=== PATIENT | female | born 1995 | race African-American/Black ===

== ENCOUNTER 2016-12-17 10:35 | Inpatient (IN) | payer OTHER ==
[~2016-12-17] VITALS: Ht 160 cm; Wt 67.0 kg
[2016-12-17] MEDS ORDERED: PRENTAB9 PO (10:51)
[2016-12-17] MEDS ORDERED: ZANTTAB PO (10:51)
[2016-12-17 10:54] VITALS: BP 116/63
[2016-12-17 13:16] LABS: MEAN CORPUSCULAR HEMOGLOBIN 32.2 pg (27.0-33.0); MEAN CORPUSCULAR HGB CONC 33.6 g/dl (32.0-36.5); RED CELL DISTRIBUTION WIDTH 13.2 % (11.5-14.5); WHITE BLOOD COUNT 15.4 K/mm3 (4.0-10.0)
[2016-12-17] MEDS ORDERED: LR 1,000 ML IV SCH ×2 (13:40→17:00)
--- NOTE | 2016-12-17 13:44 | REP ---
OB ULTRASOUND: Real-time sonographic evaluation of the gravid uterus is performed. There is a single living intrauterine gestation with an estimated gestational age 35 weeks 4 days, EDC 01/17/2017. Today's, measurements indicate suboptimal growth with estimated age of 33 weeks 1 day based on an average of ultrasound measurements. Biometry and Growth: BPD 86 mm = 34 weeks 4 days, 35th percentile HC 314 mm = 35 weeks 2 days, 45th percentile AC 271 mm = 31 weeks 1 day, less than 5th percentile FL 60 mm = 31 weeks 1 day, less than 5th percentile HC/AC ratio 1.16 is above the normal range of 0.93 to 1.12 Estimated weight 1847 grams, less than 3rd percentile. heart rate: 128/ beats per minute position: Breech. Placenta: Anterior and grade 3 with no previa or abruption. Amniotic fluid: Appears markedly low. EFE is 3.7 which is below normal range of 7.8 to 24.9. Biophysical profile score is 4 out of 8 with no points for breathing or tone. S/D ratio in the mind umbilical artery is 3.57, which is above the normal range of 2.0 to 3.0. RI 0.72 is within normal range of 0.59 to 0.75. Four chamber heart, stomach, kidneys, bladder and spine are visualized and are grossly unremarkable. Doppler was also performed in the middle cerebral artery. Peak systolic velocity is 58.2 cm/s, S/D ratio 2.48, RI 0.60. S/D ratio in the middle cerebral artery of 2.48 is abnormal since it should be greater than the S/D ratio of the umbilical artery 3.57. ? Signed by Sudeep Chow MD 12/17/2016 04:39 P
[2016-12-17] MEDS ORDERED: LACTATED RINGER'S 1000 ML IV ONE (13:45)
[2016-12-17] MEDS ORDERED: ACETAMINOPHEN 650 MG SUPP PR ONE (13:45)
[2016-12-17] MEDS ORDERED: BUPIVACAINE HCL 0.25% 10 ML VIAL SC ONE (13:45)
[2016-12-17] MEDS ORDERED: BICITRA 30ML SOLN UDC PO ONE (13:45)
[2016-12-17 14:41] VITALS: BP 93/54
[2016-12-17] MEDS ORDERED: MORPHINE PRES-FREE INJ 10 MG/10 ML VIAL (J2274) As Ordered ONE (14:42)
[2016-12-17] MEDS ORDERED: OXYTOCIN INJ 10 UNITS/ML VIAL (J2590) As Ordered ONE ×2 (14:46→15:52)
[2016-12-17] MEDS ORDERED: NALBUPHINE HCL 10 MG/ML AMP (J2300) IV PRN (14:59)
[2016-12-17] MEDS ORDERED: NALOXONE INJ 0.4 MG/1 ML VIAL (J2310) IV PRN ×2 (14:59)
[2016-12-17] MEDS ORDERED: ONDANSETRON 4MG/2ML VIAL (J2405) IV PRN (14:59)
--- NOTE | 2016-12-17 15:30 | HPE ---
DATE OF ADMISSION: 12/17/2016 This is a 21-year-old 1, para 0, seen in the office today because of a nonreassuring heart and was noted small for gestational age on ultrasound. She apparently had normal growth up until about 25 or 26 weeks. Her last menstrual period (LMP) was 04/12/2016, estimated date of confinement (EDC) 01/17/2017. She is presently at 35 and 5 weeks of gestation and is diagnosed as small for gestational age (SGA) with a breech presentation, nonreassuring heart. LABORATORY DATA: Laboratories show A+, HIV negative, RPR negative, rubella immune. Varicella immune. Pap normal. Urine negative. Gonorrhea and chlamydia are negative. One-hour glucose was 135. Her three-hour GTT fasting 82, one-hour 71, two-hour 106, and three-hour 67. Blood pressure is 93/54, respirations are 18, pulse 64 and temperature is 98.2. Urine is 1005, pH 7 and negative, negative, negative. We did an NST and she had the occasional late decelerations which were spontaneous and then she had episodes of minimal variability followed by some variability. We did a BPP which showed intrauterine breech presentation with suboptimal growth, estimated at less than the third percentile for weight of 1847 grams. heart is 128, anterior placenta, grade 3, EFE was 3.7, giving a BPP of 4/8, the ST ratio was 3.57, the RI index 0.72, the middle cerebral artery was 2.48 which was abnormal since it should be greater than the ST ratio of the umbilical artery at 3.7. We discussed extensively with the patient about delivery of the baby and the fact that there significant growth restriction and there was decreased flow with no fluid and no tone and no breathing. The most appropriate method of delivery would be section with neonatology present. We discussed the risks and benefits of section including hemorrhage, infection, perforation, , reoperation, remote possibility of blood transfusion, remote possibility of hysterectomy, remote possibility of laceration, remote possibility of baby ending up in intensive care unit (NICU). However, with a small for gestational age and requiring nutritional support, there is high likelihood the baby will be there for nutritional support. We consulted neonatology. The rest of her examination is unremarkable. She is normocephalic, atraumatic. Neck: Full range of motion. Pupils are equal and reactive to light. Distal pulses are symmetric. No evidence of deep vein thrombosis (DVT), pulmonary embolism (PE) or superficial phlebitis. No wheezes or rhonchi. No costovertebral angle (CVA) tenderness. Symphysis fundus height is not appropriate, it is breech presentation, a nonreassuring heart. She has no rashes or lesions. No pruritus. No arthralgia or myalgia. No complaints of cough, wheezes, shortness of breath or dyspnea on exertion. No chest pain. She is not bleeding. Neurologically complete. No incontinency, urgency or frequency. No nausea, vomiting, diarrhea or constipation. No diabetic issues. No [employer] issues. PAST MEDICAL AND SURGICAL HISTORY: Unremarkable. She does smoke and she smoked a package of cigarettes a day. She is a 5.5 year pack smoker. She does not abuse alcohol or any other drugs. She is . There is no domestic violence. In summary, we have a 35 and 5 weeks of gestation with a small for gestational age fetus with a biophysical profile (BPP) of 4/8 and non-stress test (NST) of 0/2, giving a total of 4/10. The optimal management for this patient is a primary section with neonatology in attendance. The patient accepts the risks and benefits, signed and witnessed the consent form. We spent one hour talking with this patient [id number].
[2016-12-17] MEDS ORDERED: ONDANSETRON 4MG/2ML VIAL (J2405) As Ordered ONE (15:31)
[2016-12-17] MEDS ORDERED: fentaNYL 100 MCG/2 ML INJECTION (J3010) As Ordered ONE ×2 (15:32→16:43)
[2016-12-17] MEDS ORDERED: ePHEDrine SULFATE 25 MG/5 ML(5MG/ML) SYRINGE As Ordered ONE (15:46)
[2016-12-17] MEDS ORDERED: PHENYLephrine HCL 500 MCG/5 ML (100MCG/ML) SYRINGE (J2370) As Ordered ONE (15:46)
[2016-12-17 15:47] LABS: CORD GAS ABE V -5.6; CORD GAS HCO3 V 20.6 MEQ/L; CORD GAS O2 SAT V 79.8 %; CORD GAS PCO2 V 42.8 mmHg; CORD GAS PH V 7.301 UNITS; CORD GAS PO2 V 37.9 mmHg; CORD GAS SBC V 19.5 MEQ/L; CORD GAS TCO2 V 21.9 MEQ/L
[2016-12-17 15:49] LABS: CORD GAS ABE A -7.2; CORD GAS HCO3 A 20.1 MEQ/L; CORD GAS O2 SAT A 92.9 %; CORD GAS PCO2 A 46.9 mmHg; CORD GAS PH A 7.25 UNITS; CORD GAS PO2 A 55.1 mmHg; CORD GAS SBC A 18.6 MEQ/L; CORD GAS TCO2 A 21.5 MEQ/L
[2016-12-17] MEDS ORDERED: MEPERIDINE 50 MG/ML 1ML VIAL (J2175) As Ordered ONE (15:55)
[2016-12-17] MEDS ORDERED: PROPOFOL 200 MG/20 ML VIAL As Ordered ONE (15:57)
[2016-12-17] MEDS ORDERED: diphenhydrAMINE INJ 50MG/ML VIAL (J1200) As Ordered ONE (16:07)
[2016-12-17] MEDS ORDERED: OXYTOCIN DRIP 30 UNITS in APPROPRIATE DILUENT 1 EA IV SCH (16:27)
[2016-12-17] MEDS ORDERED: RHOGAM 300 MCG (1500 IU) INJ (J2790) IM SCH (16:30)
[2016-12-17] MEDS ORDERED: OXYTOCIN INJ 10 UNITS/ML VIAL (J2590) IV ONE (16:30)
[2016-12-17] MEDS ORDERED: METHYLERGONOVINE MALEATE 0.2 MG TAB PO PRN (16:30)
[2016-12-17] MEDS ORDERED: DOCUSATE SODIUM 100 MG CAP PO PRN (16:30)
[2016-12-17] MEDS ORDERED: PERCOCET 5MG/325MG TAB PO PRN (16:30)
[2016-12-17] MEDS ORDERED: MEASLES,MUMPS,RUBELLA VACCINE INJ (MMR-II) (90707) SC SCH (16:30)
[2016-12-17] MEDS ORDERED: MOM 30ML SUSPENSION UDC PO PRN (16:30)
[2016-12-17] MEDS ORDERED: fentaNYL 100 MCG/2 ML INJECTION (J3010) IV PRN (17:00)
[2016-12-17 18:00] VITALS: BP 113/61
[2016-12-17 19:07] VITALS: BP 116/55
[2016-12-17 20:06] VITALS: BP 107/56
[2016-12-17 22:27] VITALS: BP 93/51
[2016-12-17] MEDS: METOCLOPRAMIDE INJ 10MG/2ML VIAL (J2765) IV PRN (23:26)
[2016-12-18 02:28] VITALS: BP 92/48
[2016-12-18] MEDS: PERCOCET 5MG/325MG TAB PO PRN ×5 (06:15→23:06)
[2016-12-18 06:54] VITALS: BP 102/60
[2016-12-18 06:57] LABS: MEAN CORPUSCULAR HEMOGLOBIN 32.4 pg (27.0-33.0); MEAN CORPUSCULAR HGB CONC 33.6 g/dl (32.0-36.5); MEAN CORPUSCULAR VOLUME 96.4 fl (80.0-96.0); WHITE BLOOD COUNT 18.4 K/mm3 (4.0-10.0)
[2016-12-18] MEDS: PRENATAL VITAMIN TAB PO SCH (08:14)
[2016-12-18 10:00] VITALS: BP 92/48
[2016-12-18] MEDS: METOCLOPRAMIDE INJ 10MG/2ML VIAL (J2765) IV PRN (14:41)
[2016-12-18 15:00] VITALS: BP 113/60
--- NOTE | 2016-12-18 15:06 | RO ---
DATE OF PROCEDURE: 12/17/2016 PREOPERATIVE DIAGNOSIS: Non-reassuring heart, small for gestational age, elevated intracerebral artery pressure, breech presentation, oligohydramnios. POSTOPERATIVE DIAGNOSIS: Non-reassuring heart, small for gestational age, elevated intracerebral artery pressure, breech presentation, oligohydramnios. OPERATION PROPOSED: Primary section. OPERATION PERFORMED: Primary section. SURGEON: Dr. Gus Goff DRIER TAKE OFF TENDER: Dr. Avani Cartwright ANESTHESIA: Spinal plus local anesthetic for intraperitoneal procedures. ESTIMATED BLOOD LOSS: 400 mL. Under adequate anesthesia, prepped and draped in supine position, Cuevas catheter in the bladder draining clear urine, acetaminophen suppository 1300 mg per rectum, sequentials on board, antibiotics preoperative. Timeout performed. Dr. Guzmán in attendance for resuscitation. Pfannenstiel incision may two fingerbreadths above the symphysis pubis passing through abdominal layers. Securing hemostasis. Opening peritoneal cavity, bladder reflected down anteriorly, huge varicosities were noted. Low transverse incision was made. Moderate amount of bleeding from the incisional site. We delivered a ana breech presentation live male infant weighing 4 pounds 1 ounce, 1836 grams, of 8 and 9 at one and five minutes respectively. There was a cord around the neck once, cord around the arm once, cord around the body into groin times one. Arterial and venous pH were performed. Arterial blood gas 7.25, base excess -7.2, venous pH 7.30, base excess -5.6. The placenta was sent to pathology under separate cover. The uterus contracted well down on Pitocin. Sweeping the uterus, no evidence of membranes or tissue. The lower segment was oversewn in two layers. Reperitonealization was performed. With instrument and pad count correct, both ovaries and tubes appeared to be normal. Counts were correct. The abdomen was closed with running stitch for the peritoneum, same for the fascia, interrupted subcutaneous Dexon to the skin, with Marcaine 0.25% 10 mL, spray and Telfa. The patient was sent to recovery in good condition.
--- NOTE | 2016-12-18 15:08 | IPN ---
DATE: 12/18/2016 Postop day 1. This lady was admitted directly from the clinic because of a non-reassuring heart, small for gestational age, rule out IUGR. She had an ultrasound which showed a biophysical profile 4/8, 3 cm fluid. No motion. No tone. No breathing. Breech presentation with an elevated middle cerebral artery value of 2.84. She had a primary section for a live male 4 pounds, 1 ounce, 1836 grams. scores of 8 and 9 at one and five minutes, respectively. The arterial pH was 7.25, base excess -7.2, venous pH 7.30, base excess -5.6. Her admitting hemoglobin 11.6, hematocrit 34.6 and platelets 272, postop day 1 hemoglobin 10.5, hematocrit 31.1 and platelets 261. We discussed phlebitis, cystitis, mastitis, endometritis and cellulitis, diet, exercise and pain management, perineal breast and wound care. Baby is going to be here for several weeks and we are planning on discharge for the patient with recurring visiting for the baby. Presently, the baby is doing well in the NICU and the parents are pleased with care being given. Her blood pressure today is 102/60, respirations 18, pulse 65, temperature is 97.9. The patient is not planning on using anything for control at the present time, but we will dispensed meds upon discharge. The rest examination is unremarkable. She is normocephalic, atraumatic. Neck full range of motion. Pupils equal and reactive to light. Distal pulses are symmetric. No evidence of DVT, PE or superficial phlebitis. No wheezes or rhonchi. Chest is clear to the bases. Abdomen is soft. Uterus 2 below. Lochia is moderate. Four quadrant bowel sounds. Incision is clean and dry. No rashes, lesions or pruritus. No arthralgia, myalgia. No complaint of cough, wheezes, shortness of breath or dyspnea on exertion. No chest pain. She is not bleeding. Neuro complete. Cuevas catheter is out. She has voided, passing gas. Active bowel sounds. No nausea, vomiting, diarrhea or constipation. She does smoke and despite the fact that she has reduced her intake, she still continues to smoke. We offered her smoking cessation aids and the patient will take it under advisement. She does not drink or abuse drugs. She is and has no domestic violence. In summary we have a primary section for oligohydramnios, breech presentation, IUGR. Both the patient and baby are doing well.
[2016-12-18 18:00] VITALS: BP 113/64
[2016-12-18 22:15] VITALS: BP 106/71
[2016-12-19] MEDS: PERCOCET 5MG/325MG TAB PO PRN ×2 (05:02→10:05)
[2016-12-19 06:16] VITALS: BP 108/72
[2016-12-19] MEDS: PRENATAL VITAMIN TAB PO SCH (07:23)
--- NOTE | 2016-12-19 10:40 | IPNPDOC ---
Text Note Date of Service The patient was seen on 12/19/16. NOTE Post-Op Day 2 Aria is a 21yo [id number] doing well on post-op day 2 s/p uncomplicated PLTCS indicated for oligohydramnios/IUGR/breech presentation with BPP of 4/8 at 35w5d. She is breast pumping for baby in NICU. Lochia normal, spontaneously voiding and ambulating without difficulty. Tolerating regular diet. Denies f/c/n /v/SOB/CP/MACKENZIE/abdominal pain. Vitals wnl, afebrile Exam: General: WDWN, NAD, resting comfortably Cardiac: S1S2 present, no murmur Lungs: CTAB without wheeze/crackles Abdomen: soft, NTTP, fundus firm u-2cm, pfannensteil with no surrounding erythema, no drainage Extremities: no tenderness of calves bilaterally, SCDs on and functioning Labs: Admission H/H 11.6/34.6, post-op H/H 10.5/31.1 Assessment: Aria is a 21yo [id number] doing well on post-op day 2 s/p uncomplicated PLTCS indicated for oligohydramnios/IUGR/breech presentation with BPP of 4/8 at 35w5d. Vitals wnl, benign exam. No e/o infection, hemodynamically stable. Plan: -discharge to home today with follow-up in clinic in 2 weeks -motrin/percocet prn pain -undecided for contraception Dr. Henri Appiah MD [place] BRANDY VS,Trena, I+O VS, Trena, I+O Vital Signs Date Time Temp Pulse Resp B/P (MAP) Pulse Ox O2 Delivery O2 Flow Rate FiO2 12/19/16 10:05 16 Room Air 12/19/16 06:16 97.7 71 108/72 (84) 12/18/16 18:00 99 I&O- Last 24 Hours up to 6 AM 12/19/16 06:00 Intake Total 720 ml Output Total 400 ml Balance 320 ml HENRI APPIAH MD Dec 19, 2016 10:40
--- NOTE | 2016-12-19 10:48 | DS.PDOC ---
Discharge Summary General Date of Admission Dec 17, 2016 at 12:44 Date of Discharge Dec 19, 2016 Attending Physician: HENRI CHINCHILLA MD Discharge Summary PROCEDURES PERFORMED DURING STAY: Primary low transverse section ADMITTING DIAGNOSES: 1. Non-reassuring heart rate tracing on routine testing 2. Oligohydramnios, intrauterine growth restriction, breech presentation with biophysical profile of 4/8 at 35 weeks 5 days DISCHARGE DIAGNOSES: 1. Non-reassuring heart rate tracing on routine testing 2. Oligohydramnios, intrauterine growth restriction, breech presentation with biophysical profile of 4/8 at 35 weeks 5 days 3. Delivered via primary low transverse section COMPLICATIONS/CHIEF COMPLAINT: Non Reassuring Heart Tracing In Office. HISTORY OF PRESENT ILLNESS/HOSPITAL COURSE: Aria is a 21yo [id number] doing well on post operative day 2 status post uncomplicated primary low transverse section indicated for oligohydramnios/intra-uterine growth restriction/breech presentation with biophysical profile of 4/8 at 35 weeks 5 days. Vitals normal, benign exam. No evidence of infection, hemodynamically stable. Benign post-operative course, stable for discharge and desirous of discharge. DISCHARGE MEDICATIONS: motrin/percocet/colace/lanolin/dibucaine ALLERGIES: Please see below. PHYSICAL EXAMINATION ON DISCHARGE: Vitals wnl, afebrile Exam: General: WDWN, NAD, resting comfortably Cardiac: S1S2 present, no murmur Lungs: CTAB without wheeze/crackles Abdomen: soft, NTTP, fundus firm u-2cm, pfannensteil with no surrounding erythema, no drainage Extremities: no tenderness of calves bilaterally LABORATORY DATA: Admission H/H 11.6/34.6, post-op H/H 10.5/31.1 ACTIVITY: As tolerated DIET: regular DISCHARGE PLAN: discharge to home today with follow-up in clinic in 2 weeks DISPOSITION: Home DISCHARGE INSTRUCTIONS: Keep incision clean and dry, vaginal rest for 6 weeks, no heavy lifting greater than weight of baby for 6 weeks Return to clinic or ER for fevers/chills, redness or increasing pain or drainage related to incision, increasing abdominal pain, breast redness/ tenderness associated with fevers/chills/muscle pain DISCHARGE CONDITION: Stable TIME SPENT ON DISCHARGE: Greater than 30 minutes. MD Nathan Royal Vital Signs/I&Os Vital Signs Date Time Temp Pulse Resp B/P (MAP) Pulse Ox O2 Delivery O2 Flow Rate FiO2 12/19/16 10:05 16 Room Air 12/19/16 06:16 97.7 71 108/72 (84) 12/18/16 18:00 99 I&O- Last 24 Hours up to 6 AM 12/19/16 06:00 Intake Total 720 ml Output Total 400 ml Balance 320 ml Discharge Medications Scheduled Multivitamins/ ( 27-0.8 mg) 1 Tab Tab, 1 TAB PO DAILY, (Reported ) Scheduled PRN Ranitidine Hcl (Zantac 150 Maximum Streng) 150 Mg Tab, 1 TAB PO PRN PRN for INDIGESTION, (Reported) Allergies Coded Allergies: Naproxen (Verified Allergy, Unknown, ANAPHYLAXIS, 12/17/16) HENRI CHINCHILLA MD Dec 19, 2016 10:48
[2016-12-19] MEDS ORDERED: COLA100C3 PO (11:45)
[2016-12-19] MEDS ORDERED: OXYC1TAB23 PO (11:45)
== END 2016-12-19 13:30 | disposition home or self-care (01) | DRG 765 ==
LOC: M LDO 10:35 → M LDI 12:44 → M OBS 18:05
PROVIDERS: ADMIT Obstetrics & Gynecology; ATTEND Obstetrics & Gynecology
PROC: 10D00Z1 Extraction of Products of Conception, Low, Open Approach (ICD-10-PCS; principal; 2016-12-17 15:20)
DX: O76 Abnormality in fetal heart rate and rhythm complicating labor and delivery (principal); O41.03X0 Oligohydramnios, third trimester, not applicable or unspecified; O36.5930 Maternal care for other known or suspected poor fetal growth, third trimester, not applicable or unspecified; O99.334 Smoking (tobacco) complicating childbirth; Z3A.35 35 weeks gestation of pregnancy; F17.210 Nicotine dependence, cigarettes, uncomplicated; O32.1XX0 Maternal care for breech presentation, not applicable or unspecified; O69.81X0 Labor and delivery complicated by cord around neck, without compression, not applicable or unspecified; O69.82X0 Labor and delivery complicated by other cord entanglement, without compression, not applicable or unspecified; Z37.0 Single live birth

== ENCOUNTER → 2018-02-06 | Outpatient (REF) | payer OTHER | LOC: M SFHCLERA 11:36 | DX: M54.5 Low back pain (principal) ==